=== PATIENT | female | born 1990 | race Caucasian/White ===

== ENCOUNTER 2018-01-23 10:42 | Day surgery (SDC) | payer MEDICAID ==
[2018-01-23] MEDS ORDERED: Iopamidol 408 MG/ML 50 ML SDV ONE (11:29)
[2018-01-23] MEDS ORDERED: Ropivacaine 0.5% 5 MG/ML 30 ML SDV ONE (11:29)
[2018-01-23] MEDS ORDERED: Betamethasone Acetate/Betamethasone Sod Phosphate 30 MG/5 ML MDV ONE (11:29)
[2018-01-23] MEDS ORDERED: Lidocaine 2% 5 ML SDV ONE (11:29)
--- NOTE | 2018-01-23 14:35 | OR ---
SURGEON: Alba Garner D.O. DATE OF PROCEDURE: 01/23/2018 OR STAFF PRESENT: 1. Byron Diaz RN. 2. Dash Ledezma RN. 3. Josey Ferreira RT. WOUND CLASSIFICATION: I. PREOPERATIVE DIAGNOSES: 1. Lumbar degenerative disk disease. 2. Lumbar radiculopathy. 3. Lumbar L4-L5 disk protrusion. 4. Thoracolumbar scoliosis, lumbosacral. 5. Chronic pain syndrome. POSTOPERATIVE DIAGNOSES: 1. Lumbar degenerative disk disease. 2. Lumbar radiculopathy. 3. Lumbar L4-L5 disk protrusion. 4. Thoracolumbar scoliosis, lumbosacral. 5. Chronic pain syndrome. PROCEDURES PERFORMED: 1. Lumbar epidural interlaminar injection at L4-L5. 2. Fluoroscopic guidance for needle placement. 3. Local with oral Valium for sedation. SCREENING QUESTIONS: The patient answered "no" to all of the following questions: 1. Are you allergic to latex? 2. Do you have a bleeding disorder? 3. Do you have any current local or systemic infections? 4. Are you taking any anti-inflammatories or blood thinners? 5. Do you have any joint replacements, heart valve replacements, or a pacemaker? DESCRIPTION OF PROCEDURE: The patient had the procedure thoroughly explained including all possible risks, benefits and alternatives. Consent was signed in my clinic indicating understanding and willingness to proceed. The patient presented to [facility] and was escorted to the dressing room to disrobe and change into a hospital gown. Preoperative vital signs were taken and stable. The patient reported that Valium was taken prior to the procedure. The patient was brought back to the procedure room and placed in the prone position on the procedure room table. A pillow was placed under the hips in order to flatten the lumbar lordosis. The back was prepped with ChloraPrep and sterilely draped. All personnel in the operating room were dressed in appropriate attire including surgical scrubs, head and shoe covers. This was to ensure sterility while in the treatment room. During the time fluoroscopy was in use, all personnel in the operating room wore lead zambrano with thyroid collars. Sterile technique was used throughout the procedure. The patient was awake and conversant throughout the procedure. There was no evidence of infection at the site of needle insertion. Skeletal landmarks were identified under fluoroscopy for the lumbar epidural. Skin was anesthetized with 2% lidocaine with a sterile 27-gauge 1.5 inch needle. Then, a 20-gauge Tuohy epidural needle was placed in the epidural space with loss of resistance technique under fluoroscopic guidance. No heme, cerebrospinal fluid, or paresthesias were noted. Isovue-200 contrast dye was injected in 0.2 cubic centimeter increments and seen to outline the epidural space in both AP and lateral views. There was no intravascular flow pattern observed under live fluoroscopy. Then, 12 milligrams of Celestone was slowly injected after negative aspiration. The patient tolerated the procedure well. Vital signs were stable during and after the procedure. The staff escorted the patient to the recovery area and the patient was released in stable condition after a brief stay in the recovery room monitored by the nurse. The patient was given both oral and written discharge and follow up instructions with recommendation to follow up given for 2-3 weeks. The patient voiced understanding including understanding of those signs and symptoms that would require emergency care. The patient knows how to contact the office if there are any additional problems or questions in the meantime. PREOPERATIVE PAIN: 8/10. POSTOPERATIVE PAIN: 3/10. PLAN: Follow up in the Pain Clinic in 3 weeks. SUMAYA / ZEE /[id number]
== END 2018-01-23 13:20 | disposition home or self-care (01) ==
LOC: MW.SDS 10:42
PROVIDERS: ATTEND Anesthesiology
DX: G89.4 Chronic pain syndrome (principal); M51.16 Intervertebral disc disorders with radiculopathy, lumbar region; M41.85 Other forms of scoliosis, thoracolumbar region; M41.87 Other forms of scoliosis, lumbosacral region; Z88.6 Allergy status to analgesic agent; Z88.8 Allergy status to other drugs, medicaments and biological substances
CPT/HCPCS: 62323; J0702; J2795; Q9966

== ENCOUNTER 2018-02-06 11:43 | Day surgery (SDC) | payer MEDICAID ==
[~2018-02-06 11:43] MED LIST: Betamethasone Acetate/Betamethasone Sod Phosphate 30 MG/5 ML MDV ONE; Iopamidol 408 MG/ML 50 ML SDV ONE; Lidocaine 2% 5 ML SDV ONE; Ropivacaine 0.5% 5 MG/ML 30 ML SDV ONE
--- NOTE | 2018-02-06 16:29 | OR ---
SURGEON: Alba Garner D.O. DATE OF PROCEDURE: 02/06/2018 OR STAFF PRESENT: 1. Dash Hammond RN. 2. Dash Lyle RN. 3. RT Usman. WOUND CLASSIFICATION: I. PREOPERATIVE DIAGNOSES: 1. Lumbar facet syndrome. 2. Chronic low back pain. 3. Lumbar degenerative disk disease. POSTOPERATIVE DIAGNOSES: 1. Lumbar facet syndrome. 2. Chronic low back pain. 3. Lumbar degenerative disk disease. PROCEDURES PERFORMED: 1. Right L4-L5 and right L5-S1 facet joint injection. 2. Fluoroscopic guidance for needle placement. 3. Local with oral Valium for sedation. SCREENING QUESTIONS: The patient answered "No" to all the following questions: 1. Are you allergic to iodine, Betadine or latex? 2. Do you have a bleeding disorder? 3. Are you on anti-inflammatories or blood thinners? 4. Do you have any current local or systemic infections? MEDICAL NECESSITY: This is a patient with chronic low back pain who comes in for the above diagnostic procedure. This procedure is being performed in accordance with national guidelines written by the [employer]; please see medical necessity note in chart. DESCRIPTION OF PROCEDURE: The patient had the procedure thoroughly explained including risks, benefits and alternatives. Consent was signed in my clinic indicating understanding and willingness to proceed. The patient presented to [facility] and was escorted to the dressing room to disrobe and change into a hospital gown. Preoperative history and screening were performed by my nurse. Vital signs were taken and stable. The patient reported that Valium 10 milligrams was taken prior to the procedure. The patient was brought back to the procedure room and placed in the prone position on the procedure room table. A pillow was placed under the abdomen in order to flatten the lumbar lordosis. The back was prepped with ChloraPrep and sterilely draped. All personnel in the procedure room were dressed in appropriate attire including surgical scrubs, head and shoe covers. This was to ensure sterility while in the treatment room. During the time fluoroscopy was in use all personnel in the operating room wore lead zambrano with thyroid collars. Sterile technique was used during the procedure. Then the fluoroscope was positioned to provide a right oblique view for the right L4-L5 facet block. This was begun by anesthetizing the skin and soft tissues. The fluoroscope was positioned and a sterile 22-gauge 3.5 inch needle was placed at the midline junction of the facet joints at the "ear of the Steve dog". Precise needle placement was confirmed by fluoroscopy and with increments of 0.2 cubic centimeters of IsoVue-200 contrast dye injected through microbore tubing under live fluoroscopy and showed no intravascular flow pattern and adequate flow over the target. After negative aspiration, 1 cubic centimeters of Celestone, lidocaine 2%, and 0.5% Ropivacaine was injected without complications. The fluoroscope was then positioned to provide a right L5-S1 facet block. This was begun by anesthetizing the skin and soft tissues. Then using fluoroscopic guidance, a sterile 22-gauge 3.5 inch spinal needle was positioned at the midline junction of the facet joint at the "ear of the Steve dog ". Precise needle placement was confirmed by fluoroscopy in AP and oblique views, and with increments of 0.2 cubic centimeters of IsoVue-200 contrast dye was injected through microbore tubing under live fluoroscopy and showed no intravascular flow pattern and adequate flow over the target. After negative aspiration, 1.0 cubic centimeters of Celestone, lidocaine 2% and 0.5% Ropivacaine was injected. No complications were noted. The procedure was well tolerated and vital signs were stable during and after the procedure. The staff escorted the patient to the recovery area. The patient was given both oral and written discharge and followup instructions. The patient will follow up with a pain diary which will be evaluated over this evening doing things that would normally cause pain. We will evaluate the efficacy of the diagnostic Facet blocks as the patient will follow up in the clinic with pain diary which we'll review the local anesthetic effects over the first 6 hours post procedure pain. The patient was given both oral and written discharge and followup instructions. The patient voiced understanding including understanding of those signs and symptoms that would require emergency care and knows how to contact the office if there are any questions or concerns in the meantime. PREOPERATIVE PAIN: 9/10. POSTOPERATIVE PAIN: 0/10. PLAN: Follow up in the Pain Clinic in 3 weeks. HOGMISHA / ZEE /[id number]
== END 2018-02-06 13:25 | disposition home or self-care (01) ==
LOC: MW.SDS 11:43
PROVIDERS: ATTEND Anesthesiology
DX: G89.29 Other chronic pain (principal); M54.5 Low back pain; M12.88 Other specific arthropathies, not elsewhere classified, other specified site; M51.16 Intervertebral disc disorders with radiculopathy, lumbar region; M41.9 Scoliosis, unspecified; M47.26 Other spondylosis with radiculopathy, lumbar region; F17.200 Nicotine dependence, unspecified, uncomplicated; Z88.6 Allergy status to analgesic agent; Z88.8 Allergy status to other drugs, medicaments and biological substances; G57.01 Lesion of sciatic nerve, right lower limb; M76.31 Iliotibial band syndrome, right leg; M76.32 Iliotibial band syndrome, left leg; Z79.899 Other long term (current) drug therapy
CPT/HCPCS: 64490; 64493; 64494; J0702; J2795; Q9966

== ENCOUNTER 2018-04-03 10:40 | Day surgery (SDC) | payer MEDICAID ==
--- NOTE | 2018-04-03 16:54 | OR ---
SURGEON: Alba Garner D.O. DATE OF PROCEDURE: 04/03/2018 OR STAFF PRESENT: 1. Vazquez Ledezma RN. 2. Vazquez Lu RN. 3. Curly Ferreira, RT. WOUND CLASSIFICATION: I. PREOPERATIVE DIAGNOSES: 1. Lumbar facet arthropathy. 2. Chronic low back pain. 3. Lumbar degenerative disk disease. 4. Mild scoliosis. POSTOPERATIVE DIAGNOSES: 1. Lumbar facet arthropathy. 2. Chronic low back pain. 3. Lumbar degenerative disk disease. 4. Mild scoliosis. PROCEDURES PERFORMED: 1. Right diagnostic and therapeutic medial branch blocks on the right at L3, L4, and L5. 2. Fluoroscopic guidance for needle placement. 3. Local with oral valium for sedation. SCREENING QUESTIONS: The patient answered "No" to all the following questions: 1. Are you allergic to iodine, Betadine or latex? 2. Do you have a bleeding disorder? 3. Are you on anti-inflammatories or blood thinners? 4. Do you have any current local or systemic infections? MEDICAL NECESSITY: This is a patient with chronic low back pain who comes in for the above diagnostic procedure. This procedure is being performed in accordance with national guidelines written by the [employer]; please see medical necessity note in chart. DESCRIPTION OF PROCEDURE: The patient had the procedure thoroughly explained including risks, benefits and alternatives. Consent was signed in my clinic indicating understanding and willingness to proceed. The patient presented to [facility] and was escorted to the dressing room to disrobe and change into a hospital gown. Preoperative history and screening were performed by my nurse. Vital signs were taken and stable. The patient reported that Valium 10 milligrams was taken prior to the procedure. The patient was brought back to the procedure room and placed in the prone position on the procedure room table. A pillow was placed under the abdomen in order to flatten the lumbar lordosis. The back was prepped with ChloraPrep and sterilely draped. All personnel in the procedure room were dressed in appropriate attire including surgical scrubs, head and shoe covers. This was to ensure sterility while in the treatment room. During the time fluoroscopy was in use all personnel in the operating room wore lead zambrano with thyroid collars. Sterile technique was used during the procedure. The fluoroscope was positioned to provide a right oblique view. Then, the right L3 medial branch block was begun by anesthetizing the skin and soft tissues with 2 cubic centimeters of 2% Preservative-Free Lidocaine with a 25-gauge 1.5 inch needle. There were no signs of infection at the site of needle skin insertions. Using fluoroscopic guidance a sterile 22-gauge 3.5 inch spinal needle was positioned at the junction of the transverse process with the superior articular process of the L4 vertebral body. Precise needle placement was confirmed by fluoroscopy and 0.2 cubic centimeters of Isovue-200 contrast dye which was injected through microbore tubing under live fluoroscopy and showed no intravascular flow pattern and adequate flow over the target L3 medial branch. Then, 0.5 cubic centimeters of 0.5% Ropivacaine Preservative-Free was injected slowly without complications after negative aspiration. Then, the fluoroscope was positioned to provide a right oblique view for the right L4 medial branch. This was begun by anesthetizing the skin and soft tissues. The fluoroscope was positioned and a sterile 22-gauge 3.5 inch needle was placed at the junction of the transverse process in the superior articular process of the L5 vertebral body. Precise needle placement was confirmed by fluoroscopy. Then, 0.2 cubic centimeters of Isovue-200 contrast dye was injected through microbore tubing under live fluoroscopy and showed no intravascular flow pattern and adequate flow over the target medial branch. After negative aspiration, 0.5 cubic centimeters of 0.5% Ropivacaine was injected without complications. The fluoroscope was then positioned to provide a right L5 dorsal ramus block. This was begun by anesthetizing the skin and soft tissues over the right sacral sulcus. Then, using fluoroscopic guidance, a sterile 22-gauge 3.5 inch spinal needle was positioned at the right sacral ala. Precise needle placement was confirmed by fluoroscopy in AP and oblique views, and 0.2 cubic centimeters of Isovue-200 contrast dye was injected through microbore tubing under live fluoroscopy and showed no intravascular flow pattern and adequate flow over the target nerves. After negative aspiration, 0.5 cubic centimeters of 0.5% Ropivacaine was injected. No complications were noted. Then, attention was turned to the left side. The fluoroscope was positioned to provide a left oblique view for the left L3 medial branch block. This was begun by anesthetizing the skin and soft tissues. Then, a 22-gauge 3.5 inch needle was positioned at the junction of the transverse process and the superior articular process at the left L4 vertebral body. Precise needle placement was confirmed by fluoroscopy with 0.2 cubic centimeters of Isovue-200 contrast dye injected through microbore tubing under live fluoroscopy showing no intravascular flow pattern and adequate flow over the target medial branch of L3 on the left. After negative aspiration, 0.5 cubic centimeters of 0.5% Ropivacaine was injected without complications. The fluoroscope was positioned then to provide a left L4 medial branch block. The skin was anesthetized. Then, a 22-gauge 3.5 inch spinal needle was positioned at the junction of the transverse process in the superior articular process of the L5 vertebral body on the left. Precise needle placement was confirmed by fluoroscopy and with 0.2 cubic centimeters of Isovue-200 contrast dye injected through microbore tubing showing no intravascular flow pattern and adequate flow over the target medial branch of L4 on the left. Then, 0.5 cubic centimeters of 0.5% Ropivacaine was injected after negative aspiration without complications. Then, the fluoroscope was positioned for the left L5 dorsal ramus block. This was begun by anesthetizing the skin and soft tissues. Then, with fluoroscopic guidance a sterile 22-gauge 3.5 inch spinal needle was positioned at the left sacral ala. Precise needle placement was confirmed with 0.2 cubic centimeters of Isovue-200 contrast dye injected through microbore tubing under live fluoroscopy showing no intravascular flow pattern and adequate flow over the target L5 nerve. The procedure was well tolerated and vital signs were stable during and after the procedure. The staff escorted the patient to the recovery area. The patient was given both oral and written discharge and followup instructions. The patient will follow up with a pain diary which will be evaluated over this evening doing things that would normally cause pain. We will evaluate the efficacy of the diagnostic lumbar medial branch blocks as the patient will follow up in the clinic the next day. The patient was given both oral and written discharge and followup instructions. The patient voiced understanding including understanding of those signs and symptoms that would require emergency care and knows how to contact the office if there are any questions or concerns in the meantime. PREOPERATIVE PAIN: /10. POSTOPERATIVE PAIN: 09/25. FOLLOWUP: Follow up in the pain clinic in 3 weeks. HOGMISHA / NOHEMYL /[id number]
== END 2018-04-03 13:00 ==
LOC: MW.SDS 10:40
PROVIDERS: ATTEND Anesthesiology
DX: G89.29 Other chronic pain (principal); M46.96 Unspecified inflammatory spondylopathy, lumbar region; M51.36 Other intervertebral disc degeneration, lumbar region; M54.5 Low back pain; M41.9 Scoliosis, unspecified; M79.1 Myalgia; F17.200 Nicotine dependence, unspecified, uncomplicated
CPT/HCPCS: 64493; 64494; J0702; J2795; Q9966

== ENCOUNTER 2018-05-08 14:33 | Emergency (ER) | payer MEDICAID ==
--- NOTE | 2018-05-08 15:20 | EDM.PDOC ---
ED HPI GENERAL MEDICAL PROBLEM - General Chief Complaint: Allergic Reaction Stated Complaint: REACTIONS TO MEDS Time Seen by Provider: 05/08/18 15:14 Source of Information: Reports: Patient History Limitations: Reports: No Limitations - History of Present Illness INITIAL COMMENTS - FREE TEXT/NARRATIVE: HISTORY AND PHYSICAL: History of present illness: Patient is a 25-year-old female here with possible reaction to her tizanidine. She states that she was at work this morning and took her tizanidine on an empty stomach. She states she got really flushed, nauseous, and anxious. She states she thinks she just had an anxiety attack as she has a history of this. She reports that as soon as she left work and came to the ER her symptoms resolved. She denies any swelling of her lips or tongue and no difficulty breathing or shortness of breath. She see's Dr. Garner for pain management and has been on the tizanidine for 3 days. She has contacted her office and discussed with her nurse. Review of systems: As per history of present illness and below otherwise all systems reviewed and negative. Past medical history: As per history of present illness and as reviewed below otherwise noncontributory. Surgical history: As per history of present illness and as reviewed below otherwise noncontributory. Social history: No reported history of drug or alcohol abuse. Family history: As per history of present illness and as reviewed below otherwise noncontributory. Physical exam: HEENT: Atraumatic, normocephalic, pupils reactive, negative for conjunctival pallor or scleral icterus, mucous membranes moist, throat clear, neck supple, nontender, trachea midline. Lungs: Clear to auscultation, breath sounds equal bilaterally, chest nontender. Heart: S1S2, regular, negative for clicks, rubs, or JVD. Abdomen: Soft, nondistended, nontender. Negative for masses or hepatosplenomegaly. Negative for costovertebral tenderness. Pelvis: Stable nontender. Genitourinary: Deferred. Rectal: Deferred. Extremities: Atraumatic, negative for cords or calf pain. Neurovascular unremarkable. Neuro: Awake, alert, oriented. Cranial nerves II through XII unremarkable. Cerebellum unremarkable. Motor and sensory unremarkable throughout. Exam nonfocal. Notes: Diagnostics: None Therapeutics: None Impression: Anxiety allergic reaction Plan: 1. Follow up with primary care provider and/or pain management clinic 2. Return to ED As needed as discussed Definitive disposition and diagnosis as appropriate pending reevaluation and review of above. - Related Data Allergies Allergy/AdvReac Type Severity Reaction Status Date / Time tramadol Allergy Hives Verified 05/08/18 14:52 Home Meds: Home Meds tiZANidine HCl [Tizanidine HCl] 4 mg PO TID PRN 05/08/18 [History] Past Medical History - Past Health History Medical/Surgical History: Denies Medical/Surgical History HEENT History: Reports: Impaired Vision Musculoskeletal History: Reports: Back Pain, Chronic Psychiatric History: Reports: Anxiety Social & Family History - Family History Family Medical History: Noncontributory - Tobacco Use Smoking Status *Q: Current Every Day Smoker Years of Tobacco use: 10 Packs/Tins Daily: 0.5 - Caffeine Use Caffeine Use: Reports: None - Recreational Drug Use Recreational Drug Use: No ED ROS ALLERGIC REACTION - Review of Systems Review Of Systems: ROS reveals no pertinent complaints other than HPI. ED EXAM GENERAL NO PERIP PULSE - Physical Exam Exam: See Below (See dictation) Course - Vital Signs Last Recorded V/S: Last Vital Signs Temp 36.4 C 05/08/18 14:48 Pulse 98 05/08/18 14:48 Resp 18 05/08/18 14:48 BP 142/105 H 05/08/18 14:48 Pulse Ox 99 05/08/18 14:48 Departure - Departure Time of Disposition: 15:14 Disposition: Home, Self-Care 01 Condition: Good Clinical Impression: Anxiety, Medication reaction - Discharge Information Referrals: PCP,None [Primary Care Provider] - Additional Instructions: The following information is given to patients seen in the emergency department who are being discharged to home. This information is to outline your options for follow-up care. We provide all patients seen in our emergency department with a follow-up referral. The need for follow-up, as well as the timing and circumstances, are variable depending upon the specifics of your emergency department visit. If you don't have a primary care physician on staff, we will provide you with a referral. We always advise you to contact your personal physician following an emergency department visit to inform them of the circumstance of the visit and for follow-up with them and/or the need for any referrals to a consulting specialist. The emergency department will also refer you to a specialist when appropriate. This referral assures that you have the opportunity for follow-up care with a specialist. All of these measure are taken in an effort to provide you with optimal care, which includes your follow-up. Under all circumstances we always encourage you to contact your private physician who remains a resource for coordinating your care. When calling for follow-up care, please make the office aware that this follow-up is from your recent emergency room visit. If for any reason you are refused follow-up, please contact the [facility] at and asked to speak to the emergency department charge nurse. [facility] [address] [place] [id number] 1. Follow up with primary care provider and/or pain management clinic 2. Return to ED As needed as discussed
== END 2018-05-08 15:44 | disposition home or self-care (01) ==
LOC: MW.ED 14:33
DX: F41.9 Anxiety disorder, unspecified (principal); T42.8X5A Adverse effect of antiparkinsonism drugs and other central muscle-tone depressants, initial encounter; F17.210 Nicotine dependence, cigarettes, uncomplicated; Z88.5 Allergy status to narcotic agent
CPT/HCPCS: 99283

== ENCOUNTER 2019-10-16 17:56 | Emergency (ER) | payer MEDICAID, OTHER ==
[2019-10-16] MEDS ORDERED: Lidocaine 2% Viscous Solution 15 ML Cup PO ONE (18:13)
[2019-10-16] MEDS ORDERED: Benzocaine 20% Topical Spray UD MUCMEM ONE (18:13)
[2019-10-16] MEDS ORDERED: Ketorolac 60 MG/2 ML SDV IM ONE (18:13)
--- NOTE | 2019-10-16 18:31 | EDM.PDOC ---
ED HPI GENERAL MEDICAL PROBLEM - General Chief Complaint: General Stated Complaint: PAIN IN MENTAL Time Seen by Provider: 10/16/19 18:06 Source of Information: Reports: Patient History Limitations: Reports: No Limitations - History of Present Illness INITIAL COMMENTS - FREE TEXT/NARRATIVE: HISTORY AND PHYSICAL: History of present illness: Patient is a 28-year-old female who presents to the emergency room with complaints of chin pain x 3 days. Patient states she fell 3 months ago, but has had some intermittent chin pain since then. She is currently tearful and appears irritated; stating she is upset being here and feels anxious. She does have multiple dental carries, states she has "lots of problems" with her teeth. Has had a "top plate" placed 2 years ago - but hasn't seen a dentist since. No pain with opening and closing her mouth. No pain with eating or chewing. Patient denies any fever, chills, headache, change in vision, syncope or near syncope. Denies any chest pain, back pain, shortness of breath or cough. Denies any GI or symptoms. Patient has been eating and drinking appropriately. Review of systems: As per history of present illness and below otherwise all systems reviewed and negative. Past medical history: As per history of present illness and as reviewed below otherwise noncontributory. Surgical history: As per history of present illness and as reviewed below otherwise noncontributory. Social history: See social history for further information Family history: As per history of present illness and as reviewed below otherwise noncontributory. Physical exam: General: Well-developed and well-nourished 28-year-old female. Alert and oriented. Tearful and appears irritated with questions and assessment. Nontoxic -appearing and in no acute distress. VSS. HEENT: Atraumatic, normocephalic, pupils equal and reactive bilaterally, negative for conjunctival pallor or scleral icterus, mucous membranes moist, pain with palpation of the anterior mid chin, multiple dental caries with poor dental hygiene. TMs normal bilaterally, throat clear, neck supple, nontender, trachea midline. No drooling or trismus noted. No TMJ or pain with opening mouth. No meningeal signs. No hot potato voice noted. Lungs: Clear to auscultation, breath sounds equal bilaterally, chest nontender. Heart: S1S2, regular rate and rhythm without overt murmur Abdomen: Soft, nondistended, nontender. Skin: Intact, warm, dry. No lesions or rashes noted. Extremities: Atraumatic, moves all extremities per self without difficulty or deficits, negative for cords or calf pain. Neurovascular unremarkable. Neuro: Awake, alert, oriented. Cranial nerves II through XII unremarkable. Cerebellum unremarkable. Motor and sensory unremarkable throughout. Exam nonfocal. Notes: Patient states she is concerned about the fall she had 3 months ago; feels she may have fractured her jaw at that time. Pain has been within the last 3 days. Will do an x-ray. No concerns that she would needs labs at this time. X-ray shows no acute findings. She does have multiple dental caries and feel this may be related to the pain she is experiencing today. Due to her poor dental hygiene and possibility of early infection I will place her on some antibiotics at this time. Strongly encouraged her to follow-up with a dentist. We discussed signs and symptoms that would prompt her to return to the emergency room. Supportive care measures were reviewed and discussed. Voices understanding and is agreeable to plan of care. Denies any further questions or concerns at this time. Diagnostics: Mandible x-ray Therapeutics: Toradol, Dental Balls Prescription: Diclofenac, Keflex Impression: Multiple dental carries/decay Jaw Pain Plan: 1. Please take the antibiotic as prescribed. 2. Tylenol and/or ibuprofen as needed for pain management. "Tooth Balls" have been given to you; apply along the gumline every 2-3 hours as needed. Do not swallow these; external use only. 3. Follow-up with a dentist for definitive care. Return to the ED as needed and as discussed. Definitive disposition and diagnosis as appropriate pending reevaluation and review of above. Duration: Day(s): - Related Data Allergies Allergy/AdvReac Type Severity Reaction Status Date / Time tramadol Allergy Hives Verified 10/16/19 18:08 Home Meds: Home Meds Diclofenac Sodium 50 mg PO BID PRN #30 tablet. 10/16/19 [Rx] cephALEXin [Keflex] 500 mg PO BID 7 Days #14 cap 10/16/19 [Rx] Past Medical History - Past Health History Medical/Surgical History: Denies Medical/Surgical History HEENT History: Reports: Impaired Vision Musculoskeletal History: Reports: Back Pain, Chronic Psychiatric History: Reports: Anxiety Social & Family History - Family History Family Medical History: Noncontributory - Tobacco Use Smoking Status *Q: Current Every Day Smoker Years of Tobacco use: 13 Packs/Tins Daily: 1 - Caffeine Use Caffeine Use: Reports: Coffee, Energy Drinks - Recreational Drug Use Recreational Drug Use: No ED ROS GENERAL - Review of Systems Review Of Systems: Comprehensive ROS is negative, except as noted in HPI. ED EXAM, GENERAL - Physical Exam Exam: See Below (See dictation) Course - Vital Signs Last Recorded V/S: Last Vital Signs Temp 97.5 F 10/16/19 19:35 Pulse 84 10/16/19 19:35 Resp 18 10/16/19 19:35 BP 129/95 H 10/16/19 19:35 Pulse Ox 98 10/16/19 19:35 - Orders/Labs/Meds Meds: Medications Discontinued Medications Generic Name Dose Route Start Last Admin Trade Name Freq PRN Reason Stop Dose Admin Benzocaine 2 each 10/16/19 18:13 10/16/19 18:36 Hurricaine One 20% MUCMEM 10/16/19 18:14 2 each ONETIME ONE Administration Ketorolac Tromethamine 60 mg 10/16/19 18:13 10/16/19 18:36 Toradol IM 10/16/19 18:14 60 mg ONETIME ONE Administration Lidocaine HCl 15 ml 10/16/19 18:13 10/16/19 18:36 Xylocaine 2% Viscous PO 10/16/19 18:14 15 ml ONETIME ONE Administration Departure - Departure Time of Disposition: 20:19 Disposition: Home, Self-Care 01 Clinical Impression: Dental caries, Jaw pain, non-TMJ - Discharge Information Prescriptions: cephALEXin [Keflex] 500 mg PO BID 7 Days #14 cap Diclofenac Sodium 50 mg PO BID PRN #30 tablet.dr CM Reason: Pain Instructions: Dental Caries, Pediatric Referrals: PCP,None [Primary Care Provider] - Forms: ED Department Discharge Additional Instructions: The following information is given to patients seen in the emergency department who are being discharged to home. This information is to outline your options for follow-up care. We provide all patients seen in our emergency department with a follow-up referral. The need for follow-up, as well as the timing and circumstances, are variable depending upon the specifics of your emergency department visit. If you don't have a primary care physician on staff, we will provide you with a referral. We always advise you to contact your personal physician following an emergency department visit to inform them of the circumstance of the visit and for follow-up with them and/or the need for any referrals to a consulting specialist. The emergency department will also refer you to a specialist when appropriate. This referral assures that you have the opportunity for follow-up care with a specialist. All of these measure are taken in an effort to provide you with optimal care, which includes your follow-up. Under all circumstances we always encourage you to contact your private physician who remains a resource for coordinating your care. When calling for follow-up care, please make the office aware that this follow-up is from your recent emergency room visit. If for any reason you are refused follow-up, please contact the [facility] at and asked to speak to the emergency department charge nurse. [facility] [address] [place] [address] [id number] [address] [id number] 1. Please take the antibiotic as prescribed. 2. Tylenol and/or Diclofenac as needed for pain management. Do not take any additional NSAIDs such as ibuprofen or Aleve while taking the diclofenac. Please take with food. "Tooth Balls" have been given to you; apply along the gumline every 2-3 hours as needed. Do not swallow these; external use only. 3. Follow-up with a dentist for definitive care. Return to the ED as needed and as discussed. Sepsis Event Note - Evaluation Sepsis Screening Result: No Definite Risk - Focused Exam Vital Signs: Vital Signs Temp Pulse Resp BP Pulse Ox 10/16/19 19:35 97.5 F 84 18 129/95 H 98 10/16/19 18:04 97.9 F 96 16 156/94 H 98 Date Exam was Performed: 10/16/19 Time Exam was Performed: 20:18
--- NOTE | 2019-10-16 19:16 | CR ---
Mandible: 3 views mandible were obtained. No discrete fracture or other abnormality is appreciated. Impression: 1. No abnormality is appreciated on 3 view mandible exam. Note: If patient continues to be symptomatic, CT study could then be considered. Diagnostic code #1 Study was dictated in [place] Standard Time
== END 2019-10-16 19:35 | disposition home or self-care (01) ==
LOC: MW.ED 17:56
DX: K02.9 Dental caries, unspecified (principal); R68.84 Jaw pain; F17.210 Nicotine dependence, cigarettes, uncomplicated; Z88.6 Allergy status to analgesic agent
CPT/HCPCS: 70100; 96372; 99283; A9270; J1885